=== PATIENT | female | born 1970 | race Caucasian/White ===

== ENCOUNTER 2023-03-10 10:06 | Day surgery (SDC) | payer OTHER ==
[2023-03-04 12:13] VITALS: BMI 31.6
--- NOTE | 2023-03-09 21:13 | HP ---
HISTORY AND PHYSICAL DATE OF SURGERY: 03/10/2023. HISTORY OF PRESENT ILLNESS: Halima Resendez is a 52-year-old patient seen with progressive left knee pain. We discussed options regarding treatment. She elected to proceed with left knee arthroscopy. Consent was obtained. PAST MEDICAL HISTORY: Gastroesophageal reflux disease. PAST SURGICAL HISTORY: Noncontributory. DAILY MEDICATIONS: 1. Pepcid. 2. Motrin. ALLERGIES: None. SOCIAL HISTORY: She denies tobacco use. PHYSICAL EVALUATION OF THE LEFT KNEE: Range of motion is 0 to 125 degrees. Mild effusion. Tenderness, medial joint line. Positive medial Geovanna's. Ligaments stable. Hip rotation without pain. Distal neurovascular exam is intact. IMAGING STUDIES: Left knee radiographs revealed mild osteoarthritis. Left knee MRI revealed medial meniscal tear. IMPRESSION: Internal derangement of left knee with medial meniscal tear. PLAN: Arthroscopy of left knee with partial medial meniscectomy and debridement. MMODL / IJN: [id number] /
[~2023-03-10 10:06] MED LIST: DEXAMETHASONE SOD PHOSPHATE 4 MG/ML 1 ML VIAL IV ONE; LACTATED RINGERS 1,000 ML IV SCH; LIDOCAINE 1% (10MG/ML) FOR IV START INTRADERMA PRN; ONDANSETRON 4 MG/2 ML VIAL IVP ONE; droPERidol 5 MG/2 ML VIAL IVP ONE
[2023-03-10] MEDS ORDERED: FAMOTIDINE 20 MG/2 ML VIAL IVP ONE (11:14)
[2023-03-10] MEDS ORDERED: PROPOFOL 10 MG/ML 20 ML VIAL IV ONE (11:24)
[2023-03-10] MEDS ORDERED: LIDOCAINE 1% INJ 10MG/ML (20 ML MDV) ONE (11:24)
[2023-03-10] MEDS ORDERED: MIDAZOLAM 2 MG/2 ML VIAL ONE (11:24)
[2023-03-10] MEDS ORDERED: SUCCINYLCHOLINE CHLORIDE 200 MG/10 ML VIAL IV ONE (11:24)
[2023-03-10] MEDS ORDERED: fentaNYL (PF) 50 MCG/ML 2 ML AMP ONE (11:24)
[2023-03-10] MEDS ORDERED: BUPIVACAINE (PF) 0.25% 30 ML VIAL SQ ONE (11:43)
--- NOTE | 2023-03-10 12:10 | P.OP ---
Date of Procedure: 03/10/23 Preoperative Diagnosis: Internal derangement left knee Postoperative Diagnosis: 1. Tear medial and lateral meniscus left knee 2. Reactive synovitis medial, lateral and suprapatellar compartments left knee Procedure(s) Performed: 1. Arthroscopic partial medial and lateral meniscectomy left knee 2. Arthroscopic partial synovectomy medial, lateral and suprapatellar compartments left knee Anesthesia: GETA, local Surgeon: Frantz Brown Estimated Blood Loss (ml): 5 Pathology: none sent Condition: stable Disposition: PACU Indications for Procedure: 52-year-old patient seen with progressive left knee pain. After having treatment options discussed, patient elected to proceed with arthroscopy. Operative Findings: See description of procedure Description of Procedure: Patient was taken to the operative suite. Patient underwent a general anesthetic by the department of anesthesia. Patient was given preoperative antibiotics. The left lower extremity was placed in a well-padded arthroscopic leg arteaga. The left leg was prepped and draped in the normal sterile orthopedic fashion. A lateral parapatellar and suprapatellar incision was made. Trochars were inserted. Arthroscopy was initiated. Suprapatellar pouch revealed diffuse thick reactive synovitis. The patellofemoral joint appeared to articular congruently. There was very mild grade I chondromalacia of the femoral sulcus. The scope was guided into the medial gutter. No loose bodies or plica were identified. The scope was then guided into the medial compartment. A medial parapatellar incision was made. Trocar inserted followed by probe. There was a complex tear involving the posterior horn of the medial meniscus. There was no significant chondromalacia. There was thick reactive synovitis anteriorly. I performed a partial medial meniscectomy getting down to stable meniscal tissue. I performed a partial synovectomy decompressing the reactive synovitis. The residual meniscus probed and was found to be stable. There was good decompression of the synovitis. Scope and probe were then guided into the intercondylar notch. Cruciates were identified, probed and found to be stable. The scope and probe were then guided into lateral compartment. There was a small radial tear mid bilateral meniscus. There was no chondromalacia of the lateral compartment. There was some reactive centimeters anteriorly. I performed a partial lateral meniscectomy getting down to stable meniscal tissue. I performed a partial synovectomy decompressing the reactive synovitis. The residual meniscus was stable. There was good decompression of the synovitis. The scope was in guided back into the suprapatellar compartment. I used a motorized shaver into the suprapatellar compartment. I debrided some piecemeal fragments of meniscus I encountered. I performed a partial synovectomy decompressing the reactive synovitis. There was good decompression of the synovitis. I now took one more look around the entire knee, no residual debris. Instruments were now removed from the joint. The joint was infiltrated with .25% Marcaine. Steri-Strips were applied to the portal sites. Sterile dressings were applied. The patient was placed into a WALDEMAR hose. No tourniquet was utilized. The patient was awakened, transferred to a bed and taken to recovery stable satisfactory condition.
[2023-03-10] MEDS: HYDROmorphone 0.5 MG/0.5 ML SYRINGE IVP PRN ×2 (12:16→12:54)
[2023-03-10 12:27] VITALS: TEMP 97.2
[2023-03-10] MEDS ORDERED: IV FLUID CONTINUATION 100 ML IV ONE (13:14)
[2023-03-10] MEDS ORDERED: HYDROcodone/APAP 5-325MG 1 EACH TAB ONE (13:28)
[2023-03-10] MEDS ORDERED: ONDANSETRON 4 MG/2 ML VIAL ONE (14:02)
[2023-03-10 14:09] VITALS: RESP 18
[2023-03-10] MEDS ORDERED: ONDANSETRON 4 MG/2 ML VIAL IVP ONE (14:12)
[2023-03-10 14:43] VITALS: BP 106/67
[2023-03-10 15:16] VITALS: PULSE 68
== END 2023-03-10 15:11 | disposition home or self-care (01) ==
LOC: OR 10:06
PROVIDERS: ATTEND Orthopaedic Surgery
DX: S83.282A Other tear of lateral meniscus, current injury, left knee, initial encounter (principal); S83.242A Other tear of medial meniscus, current injury, left knee, initial encounter; M65.162 Other infective (teno)synovitis, left knee; K21.9 Gastro-esophageal reflux disease without esophagitis; I10 Essential (primary) hypertension; F17.210 Nicotine dependence, cigarettes, uncomplicated; Z87.442 Personal history of urinary calculi; Z79.899 Other long term (current) drug therapy; X58.XXXA Exposure to other specified factors, initial encounter
CPT/HCPCS: 81025; 29880; J2250; J0330; J1100; J0690; J2405; J2001; J3010; J3490; J2704; J1170; J0665